=== PATIENT | female | born 1945 | race Caucasian/White ===

== ENCOUNTER → 2016-10-31 | Outpatient (CLI) | payer BC ==
--- NOTE | 2016-10-31 12:10 | MA ---
Screening Digital Mammogram Clinical Indications: Routine screening. Technique: Standard cephalocaudal and mediolateral oblique projections are obtained. An additional c c view is performed of the right breast. This examination was processed by the [employer] computer aided d etection system. Comparison: Breast density: C; The breast tissue is heterogeneously dense, which could obscure detection of small masses. Findings: CAD was reviewed. There is an increasing superficial rounded density in the subcutaneous ti ssues of the medial left breast approximately 2 cm from the nipple. The remainder of the left and rig ht breast are stable. Impression: Increasing density medial left breast. BI-RADS 0: additional imaging left breast. Recommendation: Spot compression view and if persistent ultrasound for further evaluation.. [facility] will send a result letter to the patient. Negative mammography should not preclude additional workup of a clinically suspicious finding. The patient's information is entered into a reminder system with a target due date for her next mammo gram.
== END ==
LOC: BRMIMAGING 11:03
PROVIDERS: ATTEND Family Medicine
DX: Z12.31 Encounter for screening mammogram for malignant neoplasm of breast (principal)
CPT/HCPCS: G0202

== ENCOUNTER → 2016-11-13 | Outpatient (CLI) | payer BC ==
--- NOTE | 2016-11-13 10:48 | MA ---
Left Unilateral Digital Diagnostic Mammogram History: Enlarging superficial focal asymmetry on mammograms. Comparison: Mammograms through 2006. Technique: CC and mediolateral oblique spot compression views and a true lateral view were obtained. Findings: There is a persistent superficial focal asymmetry in the 9 o'clock periareolar left breast. Impression: BI-RADS 0: Needs additional imaging evaluation. Recommendation: Ultrasound, which will be performed later the same day. Please see ultrasound report and recommendations. [facility] will send a result letter to the patient.
--- NOTE | 2016-11-13 10:50 | US ---
Diagnostic Left Breast Ultrasound History: Enlarging superficial asymmetry in the medial left breast. Comparison: Diagnostic mammogram same day. Technique: Limited clay-scale and Doppler ultrasound in the region of mammographic abnormality is per formed. Real-time sonography is performed by the radiologist. Findings: Ultrasound in the area of interest at 9 o'clock 2 cm from the nipple shows a relatively cir cumscribed hypoechoic 5 x 3 x 4 mm intradermal structure corresponding to the finding on mammograms. There is no visible sinus tract on ultrasound; however, on physical exam, there appears to be continu ity with the skin surface. Breast parenchyma in the region is unremarkable. Impression: Probable epidermal inclusion cyst corresponding to the finding on mammograms. BI-RADS 2: Benign Findings. Recommendation: Clinical follow up is recommended for a probable epidermal inclusion cyst. Consider s urgical consultation. Screening mammograms in one year or sooner if clinically indicated. Findings and recommendations were discussed with the patient. [facility] will send a result letter to the patient.
== END ==
LOC: BRMIMAGING 08:37
DX: R93.8 Abnormal findings on diagnostic imaging of other specified body structures (principal)
CPT/HCPCS: 76641-PO; G0206

== ENCOUNTER → 2017-11-04 | Outpatient (CLI) | payer BC | LOC: BRMIMAGING 10:40 | PROVIDERS: ATTEND Family Medicine | DX: Z12.31 Encounter for screening mammogram for malignant neoplasm of breast (principal); Z98.86 Personal history of breast implant removal ==

== ENCOUNTER → 2017-11-12 | Outpatient (CLI) | payer BC | LOC: BRMIMAGING 08:58 | PROVIDERS: ATTEND Family Medicine | DX: R92.8 Other abnormal and inconclusive findings on diagnostic imaging of breast (principal) | CPT/HCPCS: 76641-PO ==

== ENCOUNTER → 2017-12-25 | Outpatient (CLI) | payer BC | LOC: BRMIMAGING 08:39 | PROVIDERS: ATTEND Family Medicine | DX: Z13.820 Encounter for screening for osteoporosis (principal); R05 Cough; Z78.0 Asymptomatic menopausal state; Z82.62 Family history of osteoporosis; Z20.9 Contact with and (suspected) exposure to unspecified communicable disease | CPT/HCPCS: 71046-PO ==

== ENCOUNTER → 2018-11-17 | Outpatient (CLI) | payer BC | LOC: BRMIMAGING 10:46 | PROVIDERS: ATTEND Family Medicine | DX: Z12.31 Encounter for screening mammogram for malignant neoplasm of breast (principal) ==